=== PATIENT | female | born 1970 | race Caucasian/White ===

== ENCOUNTER 2021-04-12 04:02 | Emergency (ER) | payer MEDICAID, SELFPAY ==
[2021-04-12 04:04] VITALS: BP 128/71; PULSE 85; RESP 21; TEMP 37.1; O2SAT 95; BMI 24.3
--- NOTE | 2021-04-12 04:18 | ECG_ITS ---
APPROVED REPORT Exam: Resting ECG HR:90 bpm ECG Measurements Heart Rate 90 AXES IN 130 P 73 QRSd 74 QRS 64 QT 378 T 67 QTc 462 Conclusion Normal sinus rhythm Possible Left atrial enlargement Septal infarct, age undetermined Abnormal ECG Electronically signed by : Edd Chilel MD 04/15/2021 21:02:03
[2021-04-12 04:27] VITALS: BMI 24.3
--- NOTE | 2021-04-12 04:29 | XR_ITS ---
PROCEDURE INFORMATION: Exam: XR Chest Exam date and time: 04/12/2021 4:29 AM Age: 51 years old Clinical indication: Right-sided; Patient HX: Right sided chest pain about breast, cough, smoker; Additional info: Cp TECHNIQUE: Imaging protocol: XR of the chest. Views: 2 views. COMPARISON: No relevant prior studies available. FINDINGS: Lungs: Unremarkable. No consolidation. Pleural spaces: Unremarkable. No pleural effusion. No pneumothorax. Heart/Mediastinum: Unremarkable. No cardiomegaly. Bones/joints: Unremarkable. Other findings: Some chronic interstitial type changes are noted bilaterally. IMPRESSION: Chronic interstitial changes, no focal infiltrates identified.
[2021-04-12 04:30] VITALS: BP 128/71; PULSE 79; O2SAT 95
[2021-04-12 04:35] LABS: Coronavirus 19, PCR Not Detected (NotDetected); Influenza A, PCR Not Detected (NotDetected); Influenza B, PCR Not Detected (NotDetected)
[2021-04-12 04:39] LABS: Basophils # 0.1 K/mm3 (0-0.2); Basophils % 0.5 % (0.1-2.0); Eosinophils # 0.2 K/mm3 (0.0-0.4); Eosinophils % 1.4 % (0.1-12.0); Hematocrit 42.8 % (37.0-47.0); Hemoglobin 13.2 g/dL (12.2-16.2); Lymphocytes % 27.3 % (10-50); Mean Corpuscular HGB Conc 30.7 g/dL (31.8-35.4); Mean Corpuscular Hemoglobin 30.5 pg (27.0-31.2); Mean Corpuscular Volume 99.4 fl (81-99); Mean Platelet Volume 8.4 fl (7.4-10.4); Monocytes # 0.5 K/mm3 (0.1-1.0); Monocytes % 4.5 % (1.7-9.3); Neutrophils # 7.3 K/mm3 (1.8-7.8); Neutrophils % 66.2 % (37.0-80.0); Platelet Count 277 K/mm3 (142-424); Red Blood Count 4.31 M/mm3 (4.20-5.40); Red Cell Distribution Width 13.7 % (11.5-17.5)
[2021-04-12 04:45] LABS: Alanine Aminotransferase 13 U/L (12-78); Albumin Level 3.9 g/dl (3.5-5.0); Alkaline Phosphatase 95 U/L (38-126); Anion Gap 10.6 mEq/L (5-15); Aspartate Amino Transferase 24 U/L (14-36); Bilirubin,Direct 0.5 mg/dl (0.0-0.4); Bilirubin,Indirect 0.2 mg/dL (0.0-0.9); Bilirubin,Total 0.7 mg/dl (0.2-1.3); Bilirubin,Unconjugated 0.2 mg/dL (0.0-1.1); Blood Urea Nitrogen 12 mg/dl (7-17); Calcium 8.8 mg/dl (8.4-10.2); Carbon Dioxide 29 mmol/L (22.0-30.0); Chloride 104 mmol/L (98-107); Creatinine Clearance Estimated 108 mL/min (50-200); Estimated Glomerular Filt Rate 88 ml/min (>60); GFR (African American) 106 ML/MIN (>60); Glucose 109 mg/dl (74-100); Magnesium 1.7 mg/dl (1.6-2.3); Potassium 3.6 mmoL/L (3.5-5.1); Sodium 140 mmol/L (136-145)
[2021-04-12 04:51] LABS: C-Reactive Protein 22.6 mg/L (0-4)
[2021-04-12 04:53] VITALS: BP 122/73; O2SAT 95
[2021-04-12 05:00] VITALS: BP 126/74; O2SAT 95
[2021-04-12 05:02] LABS: Troponin I < 0.01 ng/ml (0.00-0.034)
[2021-04-12 05:04] LABS: Procalcitonin 0.043 ng/mL (0.0-2.0)
[2021-04-12 05:07] LABS: Erythrocyte Sedimentation Rate 17 mm/hr (0-30)
--- NOTE | 2021-04-12 05:18 | CT_ITS ---
PROCEDURE INFORMATION: Exam: CTA Chest With Contrast Exam date and time: 04/12/2021 5:18 AM Age: 51 years old Clinical indication: Right-sided; Patient HX: Right sided chest pain above breast, smoker; Additional info: Right chest pain with deap breath TECHNIQUE: Imaging protocol: Computed tomographic angiography of the chest with contrast. 3D rendering (Not supervised by radiologist): MIP and/or 3D reconstructed images were created by the technologist. Radiation optimization: All CT scans at this facility use at least one of these dose optimization techniques: automated exposure control; mA and/or kV adjustment per patient size (includes targeted exams where dose is matched to clinical indication); or iterative reconstruction. Contrast material: ISO 370; Contrast volume: 70 ml; Contrast route: INTRAVENOUS (IV); COMPARISON: CR XR CHEST 2V 04/12/2021 4:27 AM FINDINGS: Pulmonary arteries: Normal. No pulmonary emboli. Aorta: Unremarkable. No aortic aneurysm. No aortic dissection. Lungs: A dense granuloma is seen in the right lung base. Extensive centrilobular emphysema with multiple prominent subpleural blebs are noted within the right lung apex. Pleural spaces: Areas of sub pleural cascading fibrosis is also noted. Heart: Coronary atherosclerosis. No cardiomegaly. No pericardial effusion. Lymph nodes: Unremarkable. No enlarged lymph nodes. Bones/joints: Unremarkable. No acute fracture. Soft tissues: Unremarkable. IMPRESSION: 1. No evidence of pulmonary embolus. 2. Advanced COPD with extensive blebs and early fibrosis. 3. Coronary atherosclerosis
--- NOTE | 2021-04-12 05:21 | [facility].EDCP ---
ED Disposition Clinical Impression: Pleurisy, COPD (chronic obstructive pulmonary disease) with acute bronchitis, Tobacco use Disposition: Home, Self-Care Condition on Discharge: Good Instructions: DI for Pleurisy Additional Instructions: use meds and follow up with pcp Prescriptions: levoFLOXacin [Levaquin 500mg tab] 500 mg PO DAILY #7 tab Transmission Status: Pending to [facility] # predniSONE [Prednisone 20mg Tab] 20 mg PO BID #10 tab Transmission Status: Pending to [facility] # Ketorolac Tromethamine [Toradol 10mg tablet] 10 mg PO Q6HP PRN #10 tab MDD 40mg/day PRN Reason: Moderate To Severe Pain Transmission Status: Pending to [facility] # Referrals: Provider,MD Alessandra [Primary Care Provider] - Robel Sesay MD [Staff Physician] - Konrad Griffiths MD [Physician] - - Critical Care Critical Care Time: No Attestation: On 04/12/21, the high probability of a clinically significant, sudden or life threatening deterioration of the following system(s) required my full and direct attention, intervention and personal management. The time I documented below is in addition to time spent performing reported procedures but includes the following listed in this critical care notation. Medical Decision Making - Medical Records Medical records reviewed: Yes: I reviewed the patient's medical records. - Ezra Inquiry Pt receiving controlled substance: No Vital Signs: 04/12/21 04:04 04/12/21 04:30 04/12/21 04:53 Temperature 98.7 F Temperature Source Oral Pulse Rate 79 Pulse Rate [Right] 85 Respiratory Rate 21 Blood Pressure 128/71 122/73 Blood Pressure [Right Arm] 128/71 Blood Pressure Mean 94 Blood Pressure Mean [Right Arm] 90 Blood Pressure Source [Right Arm] Automatic Cuff 02 Sat by Pulse Oximetry 95 95 95 Oxygen Delivery Method Room Air Room Air Room Air 04/12/21 05:00 Temperature Temperature Source Pulse Rate Pulse Rate [Right] Respiratory Rate Blood Pressure 126/74 Blood Pressure [Right Arm] Blood Pressure Mean 95 Blood Pressure Mean [Right Arm] Blood Pressure Source [Right Arm] 02 Sat by Pulse Oximetry 95 Oxygen Delivery Method Room Air - Lab Data Lab results reviewed: Yes: I reviewed the patient's lab results. Lab Results 04/12/21 04:25: WBC 11.0 H, RBC 4.31, Hgb 13.2, Hct 42.8, MCV 99.4 H, MCH 30.5, MCHC 30.7 L, RDW 13.7, Plt Count 277, MPV 8.4, Neut % (Auto) 66.2, Lymph % (Auto) 27.3, [place] % (Auto) 4.5, Eos % (Auto) 1.4, Baso % (Auto) 0.5, Neut # (Auto) 7.3, Lymph # (Auto) 3.0, [place] # (Auto) 0.5, Eos # (Auto) 0.2, Baso # (Auto) 0.1, ESR 17 04/12/21 04:25: Sodium 140, Potassium 3.6, Chloride 104, Carbon Dioxide 29, Anion Gap 10.6, BUN 12, Creatinine 0.70, Estimated Creat Clear 108, Estimated GFR 88, Est GFR ( Amer) 106, Glucose 109 H, Calcium 8.8, Magnesium 1.7, Total Bilirubin 0.7, Direct Bilirubin 0.5 H, Conjugated Bilirubin 0.0, Indirect Bilirubin 0.2, Unconjugated Bilirubin 0.2, AST 24, ALT 13, Alkaline Phosphatase 95, Troponin I < 0.01, C-Reactive Protein 22.6 H, Total Protein 7.0, Albumin 3.9, Procalcitonin 0.043 04/12/21 04:25: SARS-CoV-2 (PCR) Not detected, Influenza A Untype (PCR) Not detected, Influenza Type B (PCR) Not detected Result diagrams: 04/12/21 04:25 04/12/21 04:25 Orders (Tests/Meds): ED MEDICATIONS Generic Name Dose Route Start Last Admin Trade Name Freq PRN Reason Stop Dose Admin Sodium Chloride 1,000 mls @ 999 mls/hr 04/12/21 04:30 04/12/21 04:43 Sod Chlor 0.9% 1000ml Bag IV 04/12/21 05:30 999 mls/hr .Q1H1M RAFAELA Administration Discontinued Medications Generic Name Dose Route Start Last Admin Trade Name Freq PRN Reason Stop Dose Admin Iopamidol 70 ml 04/12/21 05:42 04/12/21 05:43 Iopamidol-370 (76%);100ml Bottle IV 04/12/21 05:43 70 ml ONCE ONE Administration Ketorolac Tromethamine 30 mg 04/12/21 04:29 04/12/21 04:43 Ketor
[2021-04-12 06:04] VITALS: BP 138/86; PULSE 78; RESP 16; TEMP 36.7; O2SAT 95
== END 2021-04-12 06:19 | disposition home or self-care (01) ==
PROVIDERS: Emergency Provider Emergency Medicine
DX: R09.1 Pleurisy (principal); J44.0 Chronic obstructive pulmonary disease with (acute) lower respiratory infection; F17.210 Nicotine dependence, cigarettes, uncomplicated; Z20.822 Contact with and (suspected) exposure to COVID-19; Z79.899 Other long term (current) drug therapy
CPT/HCPCS: 71046; 71275; 80048; 80076; 83735; 84145; 84484; 85025; 85651; 86140; 93005; 96365; 96375; 99283; Q9967; U0003

== ENCOUNTER 2021-04-17 18:09 | Emergency (ER) | payer MEDICAID, SELFPAY ==
[2021-04-17 18:10] VITALS: BP 224/64; PULSE 83; RESP 18; TEMP 36.7; O2SAT 97; BMI 19.9
--- NOTE | 2021-04-17 18:23 | [facility].EDABDPAI ---
ED Disposition Clinical Impression: Gastritis Qualifiers: Gastritis type: unspecified gastritis Chronicity: acute Gastritis bleeding: without bleeding Qualified Code(s): K29.00 - Acute gastritis without bleeding Disposition: Home, Self-Care Condition on Discharge: Good Instructions: DI for Gastritis Additional Instructions: Please take [id number] antacid such as Tums or Maalox. Keep all follow-up appointments as scheduled. Your blood pressure was very high today. This could be partially because of your discomfort. However, he have to see a regular primary care physician to be evaluated for your high blood pressure. Return to the emergency department if you feel worse in any way. - Critical Care Critical Care Time: No Attestation: On , the high probability of a clinically significant, sudden or life threatening deterioration of the following system(s) required my full and direct attention, intervention and personal management. The time I documented below is in addition to time spent performing reported procedures but includes the following listed in this critical care notation. Medical Decision Making - Medical Records Medical records reviewed: Yes: I reviewed the patient's medical records. - Ezra Inquiry Pt receiving controlled substance: No Vital Signs: 04/17/21 18:10 Temperature 98.1 F Temperature Source Oral Pulse Rate [Left Radial] 83 Respiratory Rate 18 Blood Pressure [Right Arm] 224/64 H Blood Pressure Mean [Right Arm] 117 Blood Pressure Source [Right Arm] Automatic Cuff Blood Pressure Position [Right Arm] Sitting 02 Sat by Pulse Oximetry 97 Oxygen Delivery Method Room Air - Lab Data Lab results reviewed: Yes: I reviewed the patient's lab results. Lab Results 04/17/21 18:15: Urine Color Yellow, Urine Appearance Clear, Urine pH 6.0, Ur Specific [place] >= 1.030, Urine Protein Negative, Urine Glucose (UA) Negative, Urine Ketones Negative, Urine Blood Negative, Urine Nitrate Negative, Urine Bilirubin Negative, Urine Urobilinogen 0.2, Ur Leukocyte Esterase Negative, Urine RBC None, Urine WBC Occasional, Ur Squamous Epith Cells Occasional, Urine Bacteria None 04/17/21 18:23: WBC 10.3, RBC 4.22, Hgb 13.2, Hct 41.4, MCV 98.0, MCH 31.4 H, MCHC 32.0, RDW 14.2, Plt Count 320, MPV 8.4, Neut % (Auto) 88.7 H, Lymph % (Auto) 8.7 L, [place] % (Auto) 2.1, Eos % (Auto) 0.5, Baso % (Auto) 0.1, Neut # (Auto) 9.1 H, Lymph # (Auto) 0.9, [place] # (Auto) 0.2, Eos # (Auto) 0.1, Baso # (Auto) 0.0, Total Counted 100, Neutrophils % (Manual) 80 H, Band Neutrophils % 2.0, Lymphocytes % (Manual) 8 L, Monocytes % (Manual) 8, Eosinophils % (Manual) 2, Platelet Estimate Normal, Hypochromasia 1+, Microcytosis 1+ 04/17/21 18:23: Sodium 141, Potassium 4.2, Chloride 105, Carbon Dioxide 29, Anion Gap 11.2, BUN 22 H, Creatinine 0.90, Estimated Creat Clear 69, Estimated GFR 66, Est GFR ( Amer) 80, Glucose 112 H, Calcium 9.0, Total Bilirubin 0.3, AST 26, ALT 17, Alkaline Phosphatase 106, Total Protein 6.9, Albumin 4.0, Globulin 2.9, Albumin/Globulin Ratio 1.4, Lipase 39 Result diagrams: 04/17/21 18:23 04/17/21 18:23 Orders (Tests/Meds): ED MEDICATIONS Discontinued Medications Generic Name Dose Route Start Last Admin Trade Name Valdoq PRN Reason Stop Dose Admin Belladonna Alkaloids 60 ml 04/17/21 18:56 04/17/21 19:08 Gi Cocktail 60ml Udc PO 04/17/21 18:57 60 ml ONCE ONE Administration Ondansetron HCl 4 mg 04/17/21 18:26 04/17/21 18:37 Ondansetron 4mg/2ml Vial IV 04/17/21 18:27 4 mg ONCE ONE Administration - Reevaluation(s) Time: 19:18 Reevaluation #1: Patient felt relief after having drank a GI cocktail. Medical Decision Narrative: His work-up in the emergency department did not reveal any life-threatening or dangerous causes for the patient's symptoms. Based on the patient's physical exam and work-up, I believe that she is suffering from a gastritis. The patient will be discharged in s
[2021-04-17 18:31] LABS: Microscopic, Urine URINE MICROSCOPIC (MICROSCOPIC)
[2021-04-17 18:36] LABS: Basophils % 0.1 % (0.1-2.0); Eosinophils # 0.1 K/mm3 (0.0-0.4); Eosinophils % 0.5 % (0.1-12.0); Hematocrit 41.4 % (37.0-47.0); Hemoglobin 13.2 g/dL (12.2-16.2); Lymphocytes # 0.9 K/mm3 (0.7-4.5); Lymphocytes % 8.7 % (10-50); Mean Corpuscular Hemoglobin 31.4 pg (27.0-31.2); Mean Platelet Volume 8.4 fl (7.4-10.4); Monocytes # 0.2 K/mm3 (0.1-1.0); Monocytes % 2.1 % (1.7-9.3); Neutrophils # 9.1 K/mm3 (1.8-7.8); Neutrophils % 88.7 % (37.0-80.0); Platelet Count 320 K/mm3 (142-424); Red Blood Count 4.22 M/mm3 (4.20-5.40); Red Cell Distribution Width 14.2 % (11.5-17.5); White Blood Count 10.3 K/mm3 (4.8-10.8)
[2021-04-17 18:37] LABS: Appearance,Urine CLEAR (Clear); Bilirubin,Urine Negative (Negative); Blood, Urine Negative (Negative); Color,Urine YELLOW (Yellow); Glucose,Urine (UA) Negative (Negative); Ketones,Urine Negative (Negative); Leukocyte Esterase,Urine Negative (Negative); Nitrate,Urine Negative (Negative); Protein,Urine Negative (Negative); Specific Gravity, Urine >= 1.030 (1.005-1.030); Urobilinogen,Urine 0.2 EU/dl (0.2)
[2021-04-17 18:42] LABS: MANUAL DIFFERENTIAL MANUAL DIFFERENTIAL (MANUAL DIFF)
[2021-04-17 18:44] LABS: Squamous Epithelial Cell,Urine Occasional #/hpf (0-5); WBC,Urine Occasional #/hpf (0-3)
[2021-04-17 18:50] LABS: Chloride 105 mmol/L (98-107); Potassium 4.2 mmoL/L (3.5-5.1); Sodium 141 mmol/L (136-145)
[2021-04-17 18:52] LABS: Alanine Aminotransferase 17 U/L (12-78); Aspartate Amino Transferase 26 U/L (14-36); Blood Urea Nitrogen 22 mg/dl (7-17); Creatinine Clearance Estimated 69 mL/min (50-200); Estimated Glomerular Filt Rate 66 ml/min (>60); GFR (African American) 80 ML/MIN (>60)
[2021-04-17 18:53] LABS: Albumin/Globulin Ratio 1.4 (1.1-1.8); Alkaline Phosphatase 106 U/L (38-126); Anion Gap 11.2 mEq/L (5-15); Bilirubin,Total 0.3 mg/dl (0.2-1.3); Carbon Dioxide 29 mmol/L (22.0-30.0); Globulin 2.9 g/dL (1.3-3.2); Glucose 112 mg/dl (74-100); Lipase 39 U/L (23-300); Total Protein,Serum 6.9 g/dl (6.3-8.2)
[2021-04-17 19:05] LABS: Eosinophils % 2 % (0-3); Hypochromasia 1+; Lymphocytes % 8 % (10-50); Microcytosis 1+; Monocytes % 8 % (2-9); Neutrophils % 80 % (42-76); Platelet Estimate Normal; Total Cells Counted 100
[2021-04-17 19:18] VITALS: BP 141/72; PULSE 74; RESP 16; TEMP 36.8; O2SAT 98
== END 2021-04-17 19:24 | disposition home or self-care (01) ==
PROVIDERS: Emergency Provider Emergency Medicine; PCP Emergency Medicine
DX: K29.00 Acute gastritis without bleeding (principal); Z88.0 Allergy status to penicillin
CPT/HCPCS: 80053; 81001; 83690; 85007; 85025; 96374; 96375; 99283; J2405

== ENCOUNTER → 2021-04-22 17:31 | Outpatient (CLI) | payer MEDICAID, SELFPAY ==
[2021-04-22 18:38] LABS: Basophils # 0.1 K/mm3 (0-0.2); Basophils % 0.6 % (0.1-2.0); Eosinophils # 0.1 K/mm3 (0.0-0.4); Eosinophils % 0.6 % (0.1-12.0); Hemoglobin 13.5 g/dL (12.2-16.2); Lymphocytes # 0.8 K/mm3 (0.7-4.5); Lymphocytes % 9.2 % (10-50); Mean Corpuscular HGB Conc 30.7 g/dL (31.8-35.4); Mean Corpuscular Hemoglobin 30.7 pg (27.0-31.2); Mean Corpuscular Volume 100.1 fl (81-99); Mean Platelet Volume 9.6 fl (7.4-10.4); Monocytes # 0.6 K/mm3 (0.1-1.0); Neutrophils # 7.2 K/mm3 (1.8-7.8); Neutrophils % 82.6 % (37.0-80.0); Platelet Count 249 K/mm3 (142-424); Red Cell Distribution Width 13.8 % (11.5-17.5); White Blood Count 8.8 K/mm3 (4.8-10.8)
[2021-04-22 18:44] LABS: Alanine Aminotransferase 19 U/L (12-78); Albumin/Globulin Ratio 1.3 (1.1-1.8); Alkaline Phosphatase 125 U/L (38-126); Anion Gap 12.8 mEq/L (5-15); Aspartate Amino Transferase 43 U/L (14-36); Bilirubin,Total 0.4 mg/dl (0.2-1.3); Blood Urea Nitrogen 10 mg/dl (7-17); Calcium 8.9 mg/dl (8.4-10.2); Carbon Dioxide 27 mmol/L (22.0-30.0); Chol/HDL Ratio 2.1 (1-3.5); Cholesterol 150 mg/dl (140-200); Estimated Glomerular Filt Rate 75 ml/min (>60); GFR (African American) 91 ML/MIN (>60); Glucose 91 mg/dl (74-100); HDL Cholesterol 70 mg/dl (40-60); Triglycerides 83 mg/dl (30-150); VLDL Cholesterol 17 mg/dL (0-40)
[2021-04-22 18:46] LABS: Chloride 102 mmol/L (98-107); Sodium 137 mmol/L (136-145)
[2021-04-22 18:56] LABS: C-Reactive Protein 35.5 mg/L (0-4); Direct LDL Cholesterol 58.72 mg/dL (100-129)
[2021-04-22 19:02] LABS: 25-OH Vitamin D, Total 39.5 ng/mL (30-100)
[2021-04-22 19:14] LABS: Erythrocyte Sedimentation Rate 14 mm/hr (0-30)
[2021-04-22 19:15] LABS: Thyroid Stimulating Hormone 0.44 uIU/mL (0.465-4.68)
[2021-04-24 06:30] LABS: Hep A Ab, IgM Negative (Negative); Hepatitis B Core Antibody IgM Negative (Negative); Hepatitis B Surface Antigen Negative (Negative); Hepatitis C Antibody <0.1 s/co ratio (0.0-0.9); RA Latex Turbid. 31.1 IU/mL (0.0-13.9)
[2021-04-24 14:35] LABS: Anti-Centromere B Antibodies <0.2 AI (0.0-0.9); Anti-DNA (DS) Ab Qn <1 IU/mL (0-9); Anti-Jo-1 <0.2 AI (0.0-0.9); Anti-Smith Antibody <0.2 AI (0.0-0.9); Antichromatin Antibodies <0.2 AI (0.0-0.9); Antiscleroderma-70 Antibodies <0.2 AI (0.0-0.9); RNP Antibodies <0.2 AI (0.0-0.9); Sjogren's Anti-SS-A <0.2 AI (0.0-0.9); Sjogren's Anti-SS-B <0.2 AI (0.0-0.9)
[2021-04-25 00:07] LABS: Anti-Cyclic Citrullinated Pept 7 units (0-19)
== END ==
PROVIDERS: Visit Provider Physician Assistant
DX: M25.50 Pain in unspecified joint (principal); Z00.00 Encounter for general adult medical examination without abnormal findings; R07.9 Chest pain, unspecified; R06.02 Shortness of breath; R05 Cough; R53.83 Other fatigue; Z72.0 Tobacco use
CPT/HCPCS: 80053; 80061; 80074; 82306; 84443; 85025; 85651; 86140; 86200; 86225; 86235; 86431